=== PATIENT | female | born 1945 | race Caucasian/White ===

== ENCOUNTER → 2017-05-18 | Outpatient (CLI) | payer MEDICARE, BC ==
[2017-05-18 11:11] LABS: ABSOLUTE EOSINOPHILS # (AUTO) 0.1 10^3/uL (0.0-0.6); ABSOLUTE LYMPHOCYTES (AUTO) 1.5 10^3/uL (0.5-4.7); ABSOLUTE MONOCYTES (AUTO) 0.5 10^3/uL (0.1-1.4); ABSOLUTE NEUT (AUTO) 2.5 10^3/uL (1.7-8.2); BASOPHILS % (AUTO) 0.6 % (0-2); EOSINOPHILS % (AUTO) 2.4 % (0-6); HEMATOCRIT 42.2 % (36.0-47.0); HEMOGLOBIN 13.7 g/dL (12.0-15.5); HGB HCT DIFFERENCE -1.1; LYMPHOCYTES % (AUTO) 32.2 % (13-45); MEAN CORPUSCULAR HEMOGLOBIN 30.6 pg (27.0-33.4); MEAN CORPUSCULAR HGB CONC 32.5 g/dL (32.0-36.0); MEAN CORPUSCULAR VOLUME 94 fl (80-97); MONOCYTES % (AUTO) 11.8 % (3-13); RED BLOOD COUNT 4.48 10^6/uL (3.72-5.28); RED CELL DISTRIBUTION WIDTH 12.7 % (11.5-14.0); WHITE BLOOD COUNT 4.6 10^3/uL (4.0-10.5)
[2017-05-18 11:13] LABS: PARTIAL THROMBOPLASTIN TIME 31.7 SEC (23.5-35.8)
[2017-05-18 11:42] LABS: ANION GAP 10 (5-19); BLOOD UREA NITROGEN 10 mg/dL (7-20); CALCIUM 9.8 mg/dL (8.4-10.2); CARBON DIOXIDE 30 mmol/L (22-30); CHLORIDE 97 mmol/L (98-107); CREATININE RESULT 0.59 mg/dL (0.52-1.25); GLUCOSE 77 mg/dL (75-110); POTASSIUM 4.5 mmol/L (3.6-5.0); SODIUM 136.5 mmol/L (137-145)
== END ==
LOC: OD 10:01
PROVIDERS: ATTEND Internal Medicine Critical Care Medicine
DX: R91.8 Other nonspecific abnormal finding of lung field (principal); R91.1 Solitary pulmonary nodule; J45.909 Unspecified asthma, uncomplicated; J47.9 Bronchiectasis, uncomplicated; R06.00 Dyspnea, unspecified; K21.9 Gastro-esophageal reflux disease without esophagitis
CPT/HCPCS: 36415; 80048; 85025; 85610; 85730

== ENCOUNTER 2017-05-19 09:43 | Day surgery (SDC) | payer MEDICARE, BC ==
[~2017-05-19 09:43] MED LIST: EPINEPHRINE INJ 1 MG/10 ML DISP.SYRIN ONE; EPINEPHRINE INJ/PF 1 MG/1 ML AMPULE ONE; FLUMAZENIL INJ 0.5 MG/5 ML VIAL ONE; LIDOCAINE 2% JELLY 30 ML TUBE ONE; NALOXONE HCL INJ/PF 0.4 MG/1 ML SDV ONE
[2017-05-19] MEDS: LIDOCAINE 2% INJ (20 MG/ML) 20 ML MDV ONE ×2 (12:25→12:40)
[2017-05-19] MEDS: MIDAZOLAM 2 MG/2 ML INJ ONE ×7 (12:44→12:54)
[2017-05-19] MEDS: FENTANYL CITRATE INJ/PF 100 MCG/2 ML AMPUL ONE ×3 (12:49→12:58)
--- NOTE | 2017-05-19 13:43 | OPERATIVE REPORT E ---
Operative Report NAME: SHONNA WOODRUFF : 1945 AGE: 72Y DATE OF SURGERY: 05/19/2017 ROOM: INDICATIONS FOR PROCEDURE: The patient is a 72-year-old female with a past medical history of hemoptysis and bronchiectasis, came in for flexible bronchoscopy with bronchial washing and possible lavage and endobronchial biopsy. Consent was provided to patient. Patient verbalized understanding of the indications, risks and potential complications of the procedure. SURGEON: KOTA SHARP M.D. DESCRIPTION OF PROCEDURE: Patient was connected to the security monitor, respiratory monitor, oxygen monitor, and blood pressure monitoring. Patient was given 2% lidocaine solution via nebulizer, a total dose of 5 mL. Patient also was given 2% lidocaine solution via optimizer for a total dose of 3 mL applied to the posterior pharyngeal wall, and 2% lidocaine gel was applied through a cotton swab to the tonsillopharyngeal area bilaterally and posterior pharyngeal wall. A mouth guard was used. The flexible bronchoscope was inserted through the mouth guard. The 1% lidocaine solution in 3 mL aliquots was given as the flexible bronchoscope was advanced through the vocal cords, trachea, mainstem bronchus and segmental bronchi. The 1% lidocaine solution for a total dose of 9 mL was given as the flexible bronchoscope was advanced. Versed was given at increments of 0.5 mg for a total dose of 3.5 mg, and Fentanyl was given at increments of 25 mcg for a total dose of 75 mcg. The vocal cords appeared normal. There were no endobronchial lesions noted. Trachea appeared normal. Quyen was sharp at midline. Right mainstem bronchus and left mainstem bronchus appeared normal. There was a profuse amount of mucopurulent secretions that was noted oozing from the right middle lobe and some from the right lower lobe bronchi. The right upper lobe bronchi appeared normal. There were no endobronchial lesions noted. Left upper lobe bronchi also appeared normal with no endobronchial lesions. Left lower lobe appeared normal. Some yellowish-greenish secretions were also suctioned from the left upper lobe lingula segment but not as much as the one in the right middle lobe. The patient tolerated the procedure well. There was no adverse event noted during the procedure. The bronchial secretions will be sent for cytology, cell count and microbiology/ culture. No bleeding noted. DICTATING PHYSICIAN: KOTA SHARP MD,FABI,MPH [id number] PHY#: [id number] ID: [id number] JOB#: [id number] ACCT: [id number] cc:KOTA SHARP M.D. > [facility]
[2017-05-19 15:26] VITALS: BP 159/81
--- NOTE | 2017-05-19 20:06 | EKG REPORT ---
SEVERITY:- BORDERLINE ECG - SINUS RHYTHM BORDERLINE INFERIOR Q WAVES : Confirmed by: Donato Casey 19-May-2017 20:05:54
== END 2017-05-19 15:10 | disposition home or self-care (01) ==
LOC: OROUT 09:43
PROVIDERS: ATTEND Internal Medicine Critical Care Medicine
PROC: 0B9F8ZX Drainage of Right Lower Lung Lobe, Via Natural or Artificial Opening Endoscopic, Diagnostic (ICD-10-PCS; 2017-05-19)
PROC: 0B9D8ZX Drainage of Right Middle Lung Lobe, Via Natural or Artificial Opening Endoscopic, Diagnostic (ICD-10-PCS; 2017-05-19)
PROC: 0B9G8ZX Drainage of Left Upper Lung Lobe, Via Natural or Artificial Opening Endoscopic, Diagnostic (ICD-10-PCS; principal; 2017-05-19 12:00)
DX: R91.1 Solitary pulmonary nodule (principal); R06.00 Dyspnea, unspecified; R07.9 Chest pain, unspecified; K21.9 Gastro-esophageal reflux disease without esophagitis; Z79.51 Long term (current) use of inhaled steroids; Z79.899 Other long term (current) drug therapy
CPT/HCPCS: 31624; 87070; 87205; 87206; 87116; 87101; 87077; 87186; 87015; 88104 ×2; 93005; 93010; J2250; J3490; J3010; J0171; J2310

== ENCOUNTER → 2017-11-02 | Outpatient (CLI) | payer MEDICARE, BC ==
[2017-11-02 11:11] LABS: ABSOLUTE EOSINOPHILS # (AUTO) 0.2 10^3/uL (0.0-0.6); ABSOLUTE LYMPHOCYTES (AUTO) 1.5 10^3/uL (0.5-4.7); ABSOLUTE MONOCYTES (AUTO) 0.7 10^3/uL (0.1-1.4); ABSOLUTE NEUT (AUTO) 2.6 10^3/uL (1.7-8.2); BASOPHILS % (AUTO) 0.5 % (0-2); EOSINOPHILS % (AUTO) 3.2 % (0-6); HEMATOCRIT 41.1 % (36.0-47.0); LYMPHOCYTES % (AUTO) 30.7 % (13-45); MEAN CORPUSCULAR HEMOGLOBIN 31.7 pg (27.0-33.4); MEAN CORPUSCULAR HGB CONC 34.1 g/dL (32.0-36.0); MEAN CORPUSCULAR VOLUME 93 fl (80-97); MONOCYTES % (AUTO) 13.4 % (3-13); PLATELET COUNT 212 10^3/uL (150-450); RED BLOOD COUNT 4.41 10^6/uL (3.72-5.28); RED CELL DISTRIBUTION WIDTH 13.1 % (11.5-14.0); SEGMENTED NEUTROPHILS % (AUTO) 52.2 % (42-78); TOTAL CELLS COUNTED % (AUTO) 100 %; WHITE BLOOD COUNT 4.9 10^3/uL (4.0-10.5)
[2017-11-02 11:37] LABS: ALANINE AMINOTRANSFERASE 18 U/L (9-52); ALBUMIN 4.1 g/dL (3.5-5.0); ALKALINE PHOSPHATASE 55 U/L (38-126); ANION GAP 11 (5-19); ASPARTATE AMINO TRANSFERASE 27 U/L (14-36); BILIRUBIN,TOTAL 0.7 mg/dL (0.2-1.3); BLOOD UREA NITROGEN 12 mg/dL (7-20); CALCIUM 9.8 mg/dL (8.4-10.2); CARBON DIOXIDE 29 mmol/L (22-30); CHLORIDE 96 mmol/L (98-107); GLUCOSE 57 mg/dL (75-110); POTASSIUM 4.3 mmol/L (3.6-5.0); SODIUM 136.1 mmol/L (137-145); TOTAL PROTEIN 7.1 g/dL (6.3-8.2)
== END ==
LOC: OD 10:25
PROVIDERS: ATTEND Internal Medicine Critical Care Medicine
DX: A31.0 Pulmonary mycobacterial infection (principal); R06.00 Dyspnea, unspecified; J47.9 Bronchiectasis, uncomplicated; K21.9 Gastro-esophageal reflux disease without esophagitis; R91.8 Other nonspecific abnormal finding of lung field; R91.1 Solitary pulmonary nodule; J45.909 Unspecified asthma, uncomplicated
CPT/HCPCS: 36415; 80053; 85025

== ENCOUNTER → 2018-03-10 | Outpatient (CLI) | payer MEDICARE, BC ==
[2018-03-10 12:31] LABS: ABSOLUTE EOSINOPHILS # (AUTO) 0.1 10^3/uL (0.0-0.6); ABSOLUTE LYMPHOCYTES (AUTO) 1.6 10^3/uL (0.5-4.7); ABSOLUTE MONOCYTES (AUTO) 0.6 10^3/uL (0.1-1.4); ABSOLUTE NEUT (AUTO) 2.2 10^3/uL (1.7-8.2); BASOPHILS % (AUTO) 0.7 % (0-2); EOSINOPHILS % (AUTO) 3.1 % (0-6); HEMATOCRIT 39.3 % (36.0-47.0); HEMOGLOBIN 13.7 g/dL (12.0-15.5); LYMPHOCYTES % (AUTO) 34.6 % (13-45); MEAN CORPUSCULAR HEMOGLOBIN 32.8 pg (27.0-33.4); MEAN CORPUSCULAR VOLUME 94 fl (80-97); MONOCYTES % (AUTO) 13.1 % (3-13); PLATELET COUNT 196 10^3/uL (150-450); RED BLOOD COUNT 4.19 10^6/uL (3.72-5.28); RED CELL DISTRIBUTION WIDTH 12.6 % (11.5-14.0); SEGMENTED NEUTROPHILS % (AUTO) 48.5 % (42-78); TOTAL CELLS COUNTED % (AUTO) 100 %; WHITE BLOOD COUNT 4.5 10^3/uL (4.0-10.5)
== END ==
LOC: OD 10:31
PROVIDERS: ATTEND Internal Medicine Critical Care Medicine
DX: A49.8 Other bacterial infections of unspecified site (principal); R91.1 Solitary pulmonary nodule; R91.8 Other nonspecific abnormal finding of lung field; A31.0 Pulmonary mycobacterial infection; K21.9 Gastro-esophageal reflux disease without esophagitis; J47.9 Bronchiectasis, uncomplicated; J45.909 Unspecified asthma, uncomplicated
CPT/HCPCS: 36415; 85025

== ENCOUNTER → 2018-03-13 | Outpatient (CLI) | payer MEDICARE, BC ==
[2018-03-13 14:41] LABS: ALANINE AMINOTRANSFERASE 26 U/L (9-52); ALBUMIN 4.3 g/dL (3.5-5.0); ALKALINE PHOSPHATASE 53 U/L (38-126); ANION GAP 13 (5-19); ASPARTATE AMINO TRANSFERASE 30 U/L (14-36); BILIRUBIN,DIRECT 0.3 mg/dL (0.0-0.4); BILIRUBIN,TOTAL 0.8 mg/dL (0.2-1.3); BLOOD UREA NITROGEN 11 mg/dL (7-20); CARBON DIOXIDE 26 mmol/L (22-30); CHLORIDE 98 mmol/L (98-107); GLUCOSE 156 mg/dL (75-110); POTASSIUM 3.9 mmol/L (3.6-5.0); SODIUM 136.7 mmol/L (137-145); TOTAL PROTEIN 7.5 g/dL (6.3-8.2)
== END ==
LOC: OD 13:06
PROVIDERS: ATTEND Internal Medicine Critical Care Medicine
DX: A49.8 Other bacterial infections of unspecified site (principal); R91.1 Solitary pulmonary nodule; R91.8 Other nonspecific abnormal finding of lung field; A31.0 Pulmonary mycobacterial infection; K21.9 Gastro-esophageal reflux disease without esophagitis; J47.9 Bronchiectasis, uncomplicated; J45.909 Unspecified asthma, uncomplicated
CPT/HCPCS: 36415; 80053

== ENCOUNTER → 2018-07-10 | Outpatient (CLI) | payer MEDICARE, BC ==
[2018-07-10 14:05] LABS: ABSOLUTE EOSINOPHILS # (AUTO) 0.1 10^3/uL (0.0-0.6); ABSOLUTE LYMPHOCYTES (AUTO) 1.5 10^3/uL (0.5-4.7); ABSOLUTE MONOCYTES (AUTO) 0.4 10^3/uL (0.1-1.4); ABSOLUTE NEUT (AUTO) 4.5 10^3/uL (1.7-8.2); BASOPHILS % (AUTO) 0.3 % (0-2); EOSINOPHILS % (AUTO) 1.1 % (0-6); HEMATOCRIT 40.7 % (36.0-47.0); HEMOGLOBIN 14.8 g/dL (12.0-15.5); LYMPHOCYTES % (AUTO) 23.7 % (13-45); MEAN CORPUSCULAR HEMOGLOBIN 34.3 pg (27.0-33.4); MEAN CORPUSCULAR HGB CONC 36.5 g/dL (32.0-36.0); MEAN CORPUSCULAR VOLUME 94 fl (80-97); MONOCYTES % (AUTO) 5.4 % (3-13); PLATELET COUNT 181 10^3/uL (150-450); RED BLOOD COUNT 4.33 10^6/uL (3.72-5.28); RED CELL DISTRIBUTION WIDTH 12.2 % (11.5-14.0); SEGMENTED NEUTROPHILS % (AUTO) 69.5 % (42-78); TOTAL CELLS COUNTED % (AUTO) 100 %; WHITE BLOOD COUNT 6.5 10^3/uL (4.0-10.5)
[2018-07-10 14:34] LABS: ALANINE AMINOTRANSFERASE 24 U/L (9-52); ALBUMIN 4.3 g/dL (3.5-5.0); ALKALINE PHOSPHATASE 56 U/L (38-126); ANION GAP 15 (5-19); ASPARTATE AMINO TRANSFERASE 33 U/L (14-36); BILIRUBIN,DIRECT 0.1 mg/dL (0.0-0.4); BILIRUBIN,TOTAL 0.5 mg/dL (0.2-1.3); BLOOD UREA NITROGEN 11 mg/dL (7-20); CALCIUM 9.3 mg/dL (8.4-10.2); CARBON DIOXIDE 26 mmol/L (22-30); CHLORIDE 96 mmol/L (98-107); GLUCOSE 153 mg/dL (75-110); SODIUM 137.2 mmol/L (137-145); TOTAL PROTEIN 7.4 g/dL (6.3-8.2)
== END ==
LOC: OD 13:20
PROVIDERS: ATTEND Internal Medicine Critical Care Medicine
DX: J47.9 Bronchiectasis, uncomplicated (principal); R91.1 Solitary pulmonary nodule; R91.8 Other nonspecific abnormal finding of lung field; A49.8 Other bacterial infections of unspecified site; J18.9 Pneumonia, unspecified organism; A31.0 Pulmonary mycobacterial infection; K21.9 Gastro-esophageal reflux disease without esophagitis; R06.00 Dyspnea, unspecified; J45.909 Unspecified asthma, uncomplicated
CPT/HCPCS: 36415; 80053; 85025

== ENCOUNTER → 2018-07-12 | Outpatient (CLI) | payer MEDICARE, BC ==
--- NOTE | 2018-07-12 11:15 | RADIOLOGY REPORT (SQ) ---
EXAM DESCRIPTION: CT CHEST WITHOUT COMPLETED DATE/TIME: 07/12/2018 10:18 am REASON FOR STUDY: PULMONARY NODULE (R91.1) R91.1 SOLITARY PULMONARY NODULE COMPARISON: 06/27/2014, 12/19/2013 TECHNIQUE: CT scan performed of the chest without intravenous contrast. Images reviewed with lung, soft tissue and bone windows. Reconstructed coronal and sagittal MPR images reviewed. All images st ored on PACS. All CT scanners at this facility use dose modulation, iterative reconstruction, and/or weight based d osing when appropriate to reduce radiation dose to as low as reasonably achievable (ALARA). [facility]: Dose Right [facility]: CareDose [facility]: Dose Right [facility]: Teradose 4D [facility]: Numerex RADIATION DOSE: CT Rad equipment meets quality standard of care and radiation dose reduction techniq ues were employed. CTDIvol: 3.2 mGy. DLP: 128 mGy-cm. mGy. LIMITATIONS: No technical limitations. FINDINGS: LUNGS AND PLEURA: There is hyperexpansion bilaterally. There are stable areas of bronchie ctasis centrally as well as in the right middle lobe an within the lingula. Findings have slightly p rogressed from prior study. No suspicious discrete pulmonary nodules. HILAR AND MEDIASTINAL STRUCTURES: No identified masses or abnormal nodes. No obvious aneurysm. HEART AND VASCULAR STRUCTURES: No aneurysm. No pericardial effusion. UPPER ABDOMEN: No significant findings. Limited exam. THYROID AND OTHER SOFT TISSUES: No masses. No adenopathy. BONES: No significant finding. HARDWARE: None in the chest. OTHER: No other significant findings. IMPRESSION: Stable CT of the chest with scattered areas of bronchiectasis as described. No suspicio us pulmonary nodules. No acute consolidation. TECHNICAL DOCUMENTATION: JOB ID: [id number] Quality ID # [id number]: Final reports with documentation of one or more dose reduction techniques (e.g., Au tomated exposure control, adjustment of the mA and/or kV according to patient size, use of iterative reconstruction technique) 2010 [employer]- All Rights Reserved Reading location - IP/workstation name: [email or web address]
== END ==
LOC: RAD 09:58
PROVIDERS: ATTEND Internal Medicine Critical Care Medicine
DX: R91.1 Solitary pulmonary nodule (principal)
CPT/HCPCS: 71250

== ENCOUNTER → 2019-01-30 | Outpatient (CLI) | payer MEDICARE, BC ==
--- NOTE | 2019-01-30 09:41 | RADIOLOGY REPORT (SQ) ---
EXAM DESCRIPTION: CT CHEST WITHOUT COMPLETED DATE/TIME: 01/30/2019 8:25 am REASON FOR STUDY: SOLITARY PULMONARY NODULE/ABN FINDINGS/PNEUMONIA R91.1 SOLITARY PULMONARY NODULE R91.8 OTHER NONSPECIFIC ABNORMAL FINDING OF LUNG FIELD J18.9 PNEUMONIA, UNSPECIFIED ORGANISM COMPARISON: 07/12/2018. TECHNIQUE: CT scan performed of the chest without intravenous contrast. Images reviewed with lung, soft tissue and bone windows. Reconstructed coronal and sagittal MPR images reviewed. All images st ored on PACS. All CT scanners at this facility use dose modulation, iterative reconstruction, and/or weight based d osing when appropriate to reduce radiation dose to as low as reasonably achievable (ALARA). [facility]: Dose Right [facility]: CareDose [facility]: Dose Right [facility]: Teradose 4D [facility]: TempoIQ RADIATION DOSE: CT Rad equipment meets quality standard of care and radiation dose reduction techniq ues were employed. CTDIvol: 2.9 mGy. DLP: 119 mGy-cm. mGy. LIMITATIONS: No technical limitations. FINDINGS: LUNGS AND PLEURA: There is again evidence of prominent traction bronchiectasis within the right upper lobe, right middle lobe, lingula. There is evidence of bronchiectasis within both lower lobes. There is endobronchial plugging noted prominent within the lower lobes. Prominent acinar typ e infiltrates increased within the right middle lobe, and both lower lobes. HILAR AND MEDIASTINAL STRUCTURES: Small precarinal node unchanged. HEART AND VASCULAR STRUCTURES: Atherosclerotic coronary artery disease. UPPER ABDOMEN: The liver, spleen, adrenals demonstrate no abnormality. THYROID AND OTHER SOFT TISSUES: No masses. No adenopathy. BONES: No significant finding. HARDWARE: None in the chest. IMPRESSION: There are again changes consistent with traction bronchiectasis right upper lobe, right middle lobe, lingula. Bronchiectasis of both lower lobes. There is evidence of acinar type infiltra ehsan increase within right middle lobe and both lower lobes. Findings could represent changes seconda ry to bacterial pneumonia, fungal pneumonia or possibly mycobacteria infection. Old granulomatous di sease. TECHNICAL DOCUMENTATION: JOB ID: [id number] Quality ID # [id number]: Final reports with documentation of one or more dose reduction techniques (e.g., Au tomated exposure control, adjustment of the mA and/or kV according to patient size, use of iterative reconstruction technique) 2010 [employer]- All Rights Reserved Reading location - IP/workstation name: [email or web address]
== END ==
LOC: RAD 08:00
PROVIDERS: ATTEND Internal Medicine Critical Care Medicine
DX: R91.1 Solitary pulmonary nodule (principal); R91.8 Other nonspecific abnormal finding of lung field; J18.9 Pneumonia, unspecified organism
CPT/HCPCS: 71250

== ENCOUNTER → 2019-08-01 | Outpatient (CLI) | payer MEDICARE, BC ==
--- NOTE | 2019-08-01 13:20 | RADIOLOGY REPORT (SQ) ---
EXAM DESCRIPTION: CT CHEST WITHOUT COMPLETED DATE/TIME: 08/01/2019 9:56 am REASON FOR STUDY: R91.1 SOLITARY PULMONARY NODULE, R91.8 OTHER NONSPECIFIC ABNORMAL FINDING O R91.1 SOLITARY PULMONARY NODULE R91.8 OTHER NONSPECIFIC ABNORMAL FINDING OF LUNG FIELD J47.9 BRONCHIECTA SIS, UNCOMPLICATED COMPARISON: 01/30/2019 TECHNIQUE: CT scan performed of the chest without intravenous contrast. Images reviewed with lung, soft tissue and bone windows. Reconstructed coronal and sagittal MPR images reviewed. All images st ored on PACS. All CT scanners at this facility use dose modulation, iterative reconstruction, and/or weight based d osing when appropriate to reduce radiation dose to as low as reasonably achievable (ALARA). [facility]: Dose Right [facility]: CareDose [facility]: Dose Right [facility]: Teradose 4D [facility]: Smart Tri[employer]ascular RADIATION DOSE: CT Rad equipment meets quality standard of care and radiation dose reduction techniq ues were employed. CTDIvol: 3.2 mGy. DLP: 137 mGy-cm. mGy. LIMITATIONS: No technical limitations. FINDINGS: LUNGS AND PLEURA: Changes of chronic bronchiectasis in the right middle lobe, lingula, and in the lower lobes. There is no acute infiltrate or effusion. No mass is seen. HILAR AND MEDIASTINAL STRUCTURES: No identified masses or abnormal nodes. No obvious aneurysm. HEART AND VASCULAR STRUCTURES: No aneurysm. No pericardial effusion. UPPER ABDOMEN: No significant findings. Limited exam. THYROID AND OTHER SOFT TISSUES: No masses. No adenopathy. BONES: No significant finding. HARDWARE: None in the chest. OTHER: No other significant findings. IMPRESSION: Bronchiectasis. No acute finding in the thorax. TECHNICAL DOCUMENTATION: JOB ID: [id number] Quality ID # [id number]: Final reports with documentation of one or more dose reduction techniques (e.g., Au tomated exposure control, adjustment of the mA and/or kV according to patient size, use of iterative reconstruction technique) 2010 [employer]- All Rights Reserved Reading location - IP/workstation name: [email or web address]
== END ==
LOC: RAD 09:47
PROVIDERS: ATTEND Internal Medicine Critical Care Medicine
DX: R91.1 Solitary pulmonary nodule (principal); R91.8 Other nonspecific abnormal finding of lung field; J47.9 Bronchiectasis, uncomplicated
CPT/HCPCS: 71250

== ENCOUNTER → 2020-05-26 | Outpatient (CLI) | payer MEDICARE, BC ==
[~2020-05-26] MED LIST changes: -EPINEPHRINE INJ 1 MG/10 ML DISP.SYRIN ONE; -EPINEPHRINE INJ/PF 1 MG/1 ML AMPULE ONE; -FLUMAZENIL INJ 0.5 MG/5 ML VIAL ONE; -LIDOCAINE 2% JELLY 30 ML TUBE ONE; -NALOXONE HCL INJ/PF 0.4 MG/1 ML SDV ONE; +REGADENOSON INJ 0.4 MG/5 ML DISP.SYRIN IV ONE
--- NOTE | 2020-05-26 13:06 | DRAGON STRESS TEST REPORT ---
Pharmacological nuclear stress test Date: May 26, 2020 Referring physician: Dr. Landen Dc Performing physician: Tyrese Vences MD Indication: Chest pain Clinical history 75-year-old lady with medical history significant for systemic hypertension who presented to the office with significant anxiety and sensation of chest discomfort. Re-stratification was pursued on account of patient age, risk factors and symptoms. Procedure The patient presented to the stress lab. Initially rest images were obtained according to standard protocol after the injection of 9.92 millicurie technetium 99m sestamibi. Subsequently the patient underwent pharmacological stress utilizing 0.4 mg of regadenoson intravenously. The patient's EKG and vital signs were monitored throughout the procedure. Subsequently patient was injected with 31.8 millicuries of technetium 99m sestamibi. After a period of rest, stress images were obtained according to standard protocol. EKG showed sinus rhythm at 79 beats per minute. The patient's stress EKG did not show any evidence for myocardial ischemia. There were no arrhythmias observed. Raw as well as processed rest and stress images were reviewed. There was mild to moderate gut uptake which did not interfere with the study. The rest and stress images show uniform uptake of radioactive isotope without any fixed or reversible defects to suggest myocardial ischemia or myocardial infarction. There is normal contractility post-rest. The calculated ejection fraction is 79 %. The TID ratio is 1.03. Conclusion The stress EKG is negative for myocardial ischemia There is no scintigraphic evidence of myocardial infarction or ischemia provoked by pharmacological stress. There is normal contractility post-stress. The gated left ventricular ejection fraction is 79%. The patient will be given an appointment to discuss these results. [facility]
== END ==
LOC: RAD 07:47
PROVIDERS: ATTEND Internal Medicine
DX: I10 Essential (primary) hypertension (principal); R00.2 Palpitations; R07.9 Chest pain, unspecified
CPT/HCPCS: 93017; 78452; A9500; J2785; Q9969

== ENCOUNTER → 2020-06-03 | Outpatient (CLI) | payer MEDICARE, BC | LOC: SP 09:30 | PROVIDERS: ATTEND Internal Medicine | DX: I10 Essential (primary) hypertension (principal); R00.2 Palpitations | CPT/HCPCS: 93306 ==

== ENCOUNTER 2020-09-11 07:59 | Day surgery (SDC) | payer MEDICARE, BC ==
[~2020-09-11 07:59] MED LIST changes: +KETOROLAC TROMETHAMINE 0.45% 4 DROP/0.4 ML DROPERETTE OD PRN; -REGADENOSON INJ 0.4 MG/5 ML DISP.SYRIN IV ONE
[2020-09-11] MEDS ORDERED: ONDANSETRON HCL INJ/PF 4 MG/2 ML SDV ONE (08:27)
[2020-09-11] MEDS ORDERED: FENTANYL CITRATE INJ/PF 100 MCG/2 ML AMPUL ONE (08:28)
[2020-09-11] MEDS ORDERED: MIDAZOLAM 2 MG/2 ML INJ ONE (08:28)
[2020-09-11] MEDS: BESIFLOXACIN HCL 0.6% OPH SUSP 5 ML BOTTLE OD PRN ×4 (08:55→09:47)
[2020-09-11] MEDS: CYCLOPENTOLATE 0.2%/PHENYLEPHRINE 1% OPH SOLN 2 ML OD PRN ×3 (08:55→09:15)
[2020-09-11] MEDS: TROPICAMIDE 1% OPH SOLN 15 ML OD PRN ×3 (08:55→09:15)
[2020-09-11] MEDS: TETRACAINE HCL 0.5% OPH SOLN 4 ML OD PRN ×4 (08:56→09:27)
[2020-09-11] MEDS: EPINEPHRINE INJ/PF 1 MG/1 ML AMPULE ONE ×2 (09:37)
[2020-09-11] MEDS: LIDOCAINE 1%/PHENYLEPHRINE 1.5% 1 ML VIAL ONE ×2 (09:37)
[2020-09-11] MEDS: CHONDR SU A NA/HYALUR INTRAOC KIT (SURGICARE) ONE ×2 (09:37)
[2020-09-11] MEDS: PREDNISOLONE ACETATE 1% OPH SUSP 5 ML OD PRN ×2 (09:47)
[2020-09-11] MEDS: DORZOLAMIDE HCL 2%/TIMOLOL MALEAT 0.5% OPH SOLN 10 ML OD PRN ×2 (09:47)
[2020-09-11] MEDS ORDERED: LIDOCAINE 2% INJ-PF (100 MG/5 ML) SYRINGE ONE (09:55)
--- NOTE | 2020-09-11 12:30 | Operative Report ---
Operative Report-[facility] Operative Report: DATE OF SURGERY: 09/11/2020 PREOPERATIVE DIAGNOSIS: Cataract, right eye POSTOPERATIVE DIAGNOSIS: Cataract, right eye OPERATION: Cataract extraction with insertion of an IOL of the right eye. Intraocular Lens Model: [23.0 sn60wf] pt underwent surgery for difficulty reading small print SURGEON: Rocael Bey MD ANESTHESIA: Topical PROCEDURE: After obtaining appropriate consent, the patient's right eye was prepped and draped in a sterile fashion as well as the surgeon in the sterile manner and cataract surgery was started. First a paracentesis blade was used to make a side-port incision. Viscoelastic was used to inflate the anterior chamber. Next a 2.4 mm incision was made with a 2.4 mm blade, clear corneal temporarily. A continuous capsulorrhexis was made using a cystotome and Utrata forceps. Following this hydrodissection was carried out to make the melyssa fully loose and mobile and it was rotated. Following this, a divide and conquer technique was used to phacoemulsify the melyssa. The remaining cortex was removed with an irrigation/aspiration. Provisc was instilled into the capsular bag to in flate the bag. The intraocular lens was placed. The remaining viscoelastic material was removed with irrigation/aspiration. Following this, the incision was found to be watertight. Besivance and Cosopt was instilled into the eye and a protective shield was placed over the eye. The patient was reurned to the postoperative recovery in a stable condition.
== END 2020-09-11 10:29 | disposition home or self-care (01) ==
LOC: SC 07:59
PROVIDERS: ATTEND Internal Medicine
DX: H25.11 Age-related nuclear cataract, right eye (principal); I10 Essential (primary) hypertension; J44.9 Chronic obstructive pulmonary disease, unspecified; Z87.891 Personal history of nicotine dependence
CPT/HCPCS: 66984; 00142; V2632; J2250; J3490 ×2; A9270; J0171; J3010; J2001; J2405; 142

== ENCOUNTER 2020-10-02 06:18 | Day surgery (SDC) | payer MEDICARE, BC ==
[~2020-10-02 06:18] MED LIST changes: -KETOROLAC TROMETHAMINE 0.45% 4 DROP/0.4 ML DROPERETTE OD PRN; +KETOROLAC TROMETHAMINE 0.45% 4 DROP/0.4 ML DROPERETTE OS PRN
[2020-10-02] MEDS ORDERED: ONDANSETRON HCL INJ/PF 4 MG/2 ML SDV ONE (06:45)
[2020-10-02] MEDS ORDERED: FENTANYL CITRATE INJ/PF 100 MCG/2 ML AMPUL ONE (06:46)
[2020-10-02] MEDS ORDERED: MIDAZOLAM 2 MG/2 ML INJ ONE (06:46)
[2020-10-02] MEDS: TROPICAMIDE 1% OPH SOLN 15 ML OS PRN ×3 (06:47→07:14)
[2020-10-02] MEDS: TETRACAINE HCL 0.5% OPH SOLN 4 ML OS PRN ×3 (06:47→07:29)
[2020-10-02] MEDS: CYCLOPENTOLATE 0.2%/PHENYLEPHRINE 1% OPH SOLN 2 ML OS PRN ×3 (06:48→07:14)
[2020-10-02] MEDS: BESIFLOXACIN HCL 0.6% OPH SUSP 5 ML BOTTLE OS PRN ×4 (06:48→07:52)
[2020-10-02] MEDS ORDERED: LIDOCAINE 1%/PHENYLEPHRINE 1.5% 1 ML VIAL ONE (06:58)
[2020-10-02] MEDS ORDERED: EPINEPHRINE INJ/PF 1 MG/1 ML AMPULE ONE (06:58)
[2020-10-02] MEDS ORDERED: CHONDR SU A NA/HYALUR INTRAOC KIT (SURGICARE) ONE (06:59)
[2020-10-02] MEDS ORDERED: LIDOCAINE 2% INJ-PF (100 MG/5 ML) SYRINGE ONE (07:22)
[2020-10-02] MEDS: DORZOLAMIDE HCL 2%/TIMOLOL MALEAT 0.5% OPH SOLN 10 ML OS PRN ×2 (07:52)
[2020-10-02] MEDS: PREDNISOLONE ACETATE 1% OPH SUSP 5 ML OS PRN ×2 (07:52)
--- NOTE | 2020-10-02 12:13 | Operative Report ---
[facility]ative Report[facility] Oper[facility] Report: DATE OF SURGERY: 10/02/2020 PREOPERATIVE DIAGNOSIS: Cataracts, left eye POSTOPERATIVE DIAGNOSIS: Cataract, left eye OPERATION: Cataract extraction with insertion of an IOL of the left eye. Intraocular Lens Model: [22.5 SN 60 WF] Patient underwent surgery for difficulty being able to self SURGEON: Rocael Bey MD ANESTHESIA: Topical PROCEDURE: After obtaining appropriate consent, the patient's left eye was prepped and draped in a sterile fashion as well as the surgeon in the sterile manner and cataract surgery was started. First a paracentesis blade was used to make a side-port incision. Viscoelastic was used to inflate the anterior chamber. Next a 2.4 mm incision was made with a 2.4 mm blade, clear corneal temporarily. A continuous capsulorrhexis was made using a cystotome and Utrata forceps. Following this hydrodissection was carried out to make the lens fully loose and mobile and it was rotated 90 degrees. Following this, a divide and conquer technique was used to phacoemulsify the lens. The remaining cortex was removed with an irrigation/aspiration. Provisc was instilled into the capsular bag to inflate the bag.The intraocular lens was placed. The remaining viscoelastic material was removed with irrigation/aspiration. Following this, the incision was found to be watertight. Besivance and Cosopt was instilled into the eye and a protective shield was placed over the eye. The patient was returned to the postoperative recovery in a stable condition.
== END 2020-10-02 08:24 | disposition home or self-care (01) ==
LOC: SC 06:18
PROVIDERS: ATTEND Internal Medicine
DX: H25.12 Age-related nuclear cataract, left eye (principal); Z96.1 Presence of intraocular lens; I10 Essential (primary) hypertension; J45.909 Unspecified asthma, uncomplicated
CPT/HCPCS: 66984; V2632; J2250; J3490 ×2; A9270; J0171; J3010; J2001; J2405